=== PATIENT | female | born 1930 | race African-American/Black ===

== ENCOUNTER 2018-11-30 18:15 | Inpatient (IN) | payer MEDICARE ==
[~2018-11-30] VITALS: Ht 165.1 cm; Wt 49.0 kg
[2018-11-30] MEDS ORDERED: SODIUM CHLORIDE 0.9% 1000ML BAG (SEPSIS BOLUS) IV ONE (18:45)
[2018-11-30] MEDS ORDERED: LEVOFLOXACIN 750MG PREMIX 150 ML IV ONE (19:30)
[2018-11-30 20:10] LABS: BASOPHILS % 0.2 % (0.0-2.0); EOSINOPHILS % 9.7 % (0.0-5.0); HEMATOCRIT. 32.6 % (36.0-48.0); HEMOGLOBIN. 11.1 g/dL (12.0-16.0); LYMPHOCYTES % 36.8 % (20.0-50.0); MEAN CORPUSCULAR HEMOGLOBIN 32.1 pg (28.0-32.0); MEAN CORPUSCULAR VOLUME 94.4 fL (81.0-99.0); MEAN PLATELET VOLUME 9.8 fl (7.4-10.4); MONOCYTES % 13.9 % (2.0-8.0); NEUTROPHILS % 39.4 % (40.0-76.0); PLATELET 167 x1000/uL (130-400); RED BLOOD CELL COUNT 3.46 mill/uL (4.2-5.4); RED CELL DISTRIBUTION WIDTH 14.1 % (11.6-14.6)
[2018-11-30 20:17] LABS: INR 1.1; PARTIAL THROMBOPLASTIN TIME 31.7 sec (23.4-31.0); PROTHROMBIN TIME 11.2 sec (9.6-11.0)
[2018-11-30 20:18] LABS: CHLORIDE 105 mEq/L (98-107)
[2018-11-30 20:40] LABS: CLARITY URINE CLOUDY (CLEAR); COLOR URINE YELLOW (YELLOW); KETONES URINE NEGATIVE (NEGATIVE); LEUKOCYTE ESTERASE URINE NEGATIVE (NEGATIVE); NITRITE URINE NEGATIVE (NEGATIVE); OCCULT BLOOD URINE NEGATIVE (NEGATIVE); PH URINE 5.5 (4.5-8.0); PROTEIN URINE NEGATIVE (NEGATIVE); SPECIFIC GRAVITY URINE 1.006 (1.005-1.030); UROBILINOGEN URINE 0.2 E.U./dL (0.2-1.0)
[2018-11-30] MEDS ORDERED: ONDANSETRON HCL 4MG/2ML INJ IV STA (20:54)
[2018-11-30] MEDS ORDERED: MORPHINE SULFATE 4 MG/ML CPJ (NOT FOR IM USE) IV STA (20:54)
[2018-11-30] MEDS ORDERED: ASPIRIN 325MG EC TABLET PO ONE (21:00)
[2018-11-30] MEDS ORDERED: DEXTROSE 50% WATER 50ML SYRINGE IV ONE (22:15)
[2018-11-30] MEDS ORDERED: ACETAMINOPHEN 325MG TABLET PO PRN (23:00)
[2018-11-30] MEDS ORDERED: ONDANSETRON HCL 4MG/2ML INJ IV PRN (23:00)
[2018-11-30] MEDS ORDERED: LEVOFLOXACIN 500MG PREMIX 100 ML IV SCH (23:00)
[2018-11-30] MEDS ORDERED: HYDROCODONE/ACETAMINOPHEN 5/325MG TABLET PO PRN (23:00)
[2018-11-30] MEDS ORDERED: MAGNESIUM/ALUMINUM HYDROXIDE/SIMETHICONE 30ML UDC PO PRN (23:00)
[2018-12-01] VITALS (7 sets, daily range): BP systolic 125–166; BP diastolic 50–90
[2018-12-01] MEDS: DEXT 5%/0.45% NACL 1000ML 1,000 ML IV SCH (01:43)
[2018-12-01] MEDS ORDERED: AMLO5TAB88 PO (05:42)
[2018-12-01] MEDS ORDERED: RISP0.2514 PO (05:42)
[2018-12-01] MEDS ORDERED: FAMO20TA8 PO (05:42)
[2018-12-01] MEDS ORDERED: MEMA5TAB15 PO (05:42)
[2018-12-01] MEDS ORDERED: INSU100I28 SQ (05:42)
[2018-12-01] MEDS ORDERED: ASPI-1158 PO (05:42)
[2018-12-01] MEDS ORDERED: HYDR-4134 PO (05:42)
[2018-12-01] MEDS: ENOXAPARIN 30MG/0.3ML SYR SUBCUT SCH (09:01)
[2018-12-01 10:19] LABS: BASOPHILS % 0.3 % (0.0-2.0); EOSINOPHILS % 5.2 % (0.0-5.0); HEMATOCRIT. 31.2 % (36.0-48.0); HEMOGLOBIN. 10.5 g/dL (12.0-16.0); LYMPHOCYTES % 29.8 % (20.0-50.0); MEAN CORPUSCULAR HEMOGLOBIN 32.1 pg (28.0-32.0); MEAN CORPUSCULAR VOLUME 95.2 fL (81.0-99.0); MEAN PLATELET VOLUME 10.3 fl (7.4-10.4); MONOCYTES % 14.5 % (2.0-8.0); NEUTROPHILS % 50.2 % (40.0-76.0); PLATELET 167 x1000/uL (130-400); RED BLOOD CELL COUNT 3.28 mill/uL (4.2-5.4); RED CELL DISTRIBUTION WIDTH 14.2 % (11.6-14.6)
[2018-12-01 10:23] LABS: CHLORIDE 106 mEq/L (98-107)
[2018-12-01] MEDS: CLONIDINE 0.1MG TABLET PO PRN (12:38)
[2018-12-01] MEDS ORDERED: DEXTROSE 50% WATER 50ML SYRINGE IV PRN (15:45)
[2018-12-01] MEDS: BLOOD SUGAR DIAGNOSTIC STRIP TEST SCH ×2 (16:53→21:01)
[2018-12-01] MEDS: DOCUSATE SODIUM 100MG CAPSULE PO PRN (17:05)
[2018-12-01] MEDS: INSULIN LISPRO 100 UNITS/ML SUBCUT SCH ×2 (17:05→21:27)
[2018-12-01] MEDS: LEVOFLOXACIN 250MG PREMIX 50 ML IV SCH (21:01)
[2018-12-02] VITALS: BP 145/61
[2018-12-02 04:00] VITALS: BP 141/86
[2018-12-02] MEDS: INSULIN LISPRO 100 UNITS/ML SUBCUT SCH ×4 (07:15→20:30)
[2018-12-02 07:43] LABS: BASOPHILS % 0.3 % (0.0-2.0); EOSINOPHILS % 6.1 % (0.0-5.0); HEMATOCRIT. 31.9 % (36.0-48.0); HEMOGLOBIN. 10.8 g/dL (12.0-16.0); MEAN CORPUSCULAR HEMOGLOBIN 32.1 pg (28.0-32.0); MEAN CORPUSCULAR VOLUME 94.6 fL (81.0-99.0); MEAN PLATELET VOLUME 10.3 fl (7.4-10.4); NEUTROPHILS % 41.6 % (40.0-76.0); PLATELET 168 x1000/uL (130-400); RED BLOOD CELL COUNT 3.37 mill/uL (4.2-5.4); RED CELL DISTRIBUTION WIDTH 14.4 % (11.6-14.6)
[2018-12-02 07:59] LABS: CHLORIDE 108 mEq/L (98-107)
[2018-12-02 08:00] VITALS: BP 162/71
[2018-12-02] MEDS: DOCUSATE SODIUM 100MG CAPSULE PO PRN (08:44)
[2018-12-02] MEDS: ENOXAPARIN 30MG/0.3ML SYR SUBCUT SCH (08:44)
[2018-12-02] MEDS: CLONIDINE 0.1MG TABLET PO PRN (09:38)
[2018-12-02] MEDS: DEXT 5%/0.45% NACL 1000ML 1,000 ML IV SCH (09:38)
[2018-12-02] MEDS: BLOOD SUGAR DIAGNOSTIC STRIP TEST SCH ×3 (11:38→20:30)
[2018-12-02 12:00] VITALS: BP 135/77
[2018-12-02] MEDS ORDERED: NA PHOS,M-B/NA PHOS,DI-BA ENEMA 118ML PR PRN (14:00)
[2018-12-02] MEDS ORDERED: DIPHENHYDRAMINE 50MG/ML VIAL IV PRN (14:00)
[2018-12-02] MEDS ORDERED: AMLODIPINE 5MG TABLET PO ONE (14:00)
[2018-12-02] MEDS ORDERED: BISACODYL 10MG SUPP PR PRN (14:00)
[2018-12-02] MEDS ORDERED: LORAZEPAM 2MG/ML CPJ IV PRN (14:00)
[2018-12-02 15:26] LABS: BG BASE EXCESS 0.2 mmol/L (-2.0-2.0); BG CARBOXYHEMOGLOBIN 0.3 % (0.5-1.5); BG DEOXYHEMOGLOBIN 4.8 % (0.0-5.0); BG FRACTION INSPIRED OXYGEN 21; BG HCO3 ACT 24.9 mmol/L (22.0-26.0); BG METHEMOGLOBIN 0.3 % (0.0-1.5); BG OXYGEN SATURATION 95.2 % (92.0-98.5); BG OXYHEMOGLOBIN 94.6 % (94.0-97.0); BG PH 7.402 (7.350-7.450); BG PO2 78.1 mmHg (75.0-100.0); BG SAMPLE SITE LEFT BRACHIAL; BG TOTAL HEMOGLOBIN 11.3 g/dL (12.0-18.0); BG VENT MODE ROOM AIR
[2018-12-02 16:00] VITALS: BP 106/56
[2018-12-02 20:00] VITALS: BP 132/60
[2018-12-02] MEDS: LEVOFLOXACIN 250MG PREMIX 50 ML IV SCH (20:29)
[2018-12-02] MEDS: AMLODIPINE 5MG TABLET PO SCH (22:21)
[2018-12-03] VITALS: BP 141/63
[2018-12-03 04:00] VITALS: BP 150/68
[2018-12-03] MEDS: BLOOD SUGAR DIAGNOSTIC STRIP TEST SCH ×3 (06:33→17:20)
[2018-12-03] MEDS: INSULIN LISPRO 100 UNITS/ML SUBCUT SCH ×3 (06:33→17:29)
[2018-12-03 07:32] LABS: HEMATOCRIT 29.7 % (36.0-48.0); HEMOGLOBIN 10.1 g/dL (12.0-16.0); MEAN CORPUSCULAR HEMOGLOBIN 32.3 pg (28.0-32.0); MEAN CORPUSCULAR VOLUME 94.7 fL (81.0-99.0); PLATELET 174 x1000/uL (130-400); RED BLOOD CELL COUNT 3.14 mill/uL (4.2-5.4); RED CELL DISTRIBUTION WIDTH 13.9 % (11.6-14.6)
[2018-12-03 07:35] LABS: CHLORIDE 108 mEq/L (98-107)
[2018-12-03 08:00] VITALS: BP 132/62
[2018-12-03] MEDS: ENOXAPARIN 30MG/0.3ML SYR SUBCUT SCH (09:44)
[2018-12-03] MEDS: AMLODIPINE 5MG TABLET PO SCH (09:45)
[2018-12-03] MEDS: DEXT 5%/0.45% NACL 1000ML 1,000 ML IV SCH (09:52)
[2018-12-03 12:00] VITALS: BP 138/64
[2018-12-03] MEDS ORDERED: LINEZOLID 600 MG PREMIX 300 ML IV SCH (13:15)
[2018-12-03] MEDS ORDERED: AMPICILLIN 1000MG in SODIUM CHLORIDE 0.9% 50ML IV SCH (15:00)
[2018-12-03 17:40] VITALS: BP 135/65
== END 2018-12-03 19:52 | disposition home or self-care (01) | DRG 637 ==
LOC: ER 18:15 → 5WST 21:04 → SUPCPDRO 22:48 → ENRESERV 23:19
PROVIDERS: ADMIT Internal Medicine; ATTEND Internal Medicine
DX: E11.649 Type 2 diabetes mellitus with hypoglycemia without coma (principal); I50.33 Acute on chronic diastolic (congestive) heart failure; G93.40 Encephalopathy, unspecified; N39.0 Urinary tract infection, site not specified; I11.0 Hypertensive heart disease with heart failure; F03.90 Unspecified dementia, unspecified severity, without behavioral disturbance, psychotic disturbance, mood disturbance, and anxiety; D64.9 Anemia, unspecified; D72.819 Decreased white blood cell count, unspecified; K59.09 Other constipation; R62.7 Adult failure to thrive; Z16.21 Resistance to vancomycin; Z79.4 Long term (current) use of insulin; Z79.899 Other long term (current) drug therapy
CPT/HCPCS: 36415; 36600; 71045; 74018; 74176; 80048; 81003; 82375; 82805; 82962; 83036; 83605; 83735; 83880; 84145; 84484; 85027; 87077; 87186; 93005; 93306; 93970; 97162; 99285; J0290; J1650; J1815; J1956; J2270; J2405; J7030; J7040